=== PATIENT | female | born 1960 | race Hispanic/Latino ===

== ENCOUNTER 2016-11-09 13:02 | Emergency (ER) | payer OTHER ==
[~2016-11-09] VITALS: Ht 162.6 cm; Wt 71.2 kg
--- NOTE | 2016-11-09 14:04 | ED THROAT/DENTAL COMPLAINT ---
History of Present Illness General Chief Complaint: Sore Throat, Dental Pain Stated Complaint: THROAT INFECTION, NOT GETTING BETTER ENT 11/28 Source: patient, old records Exam Limitations: no limitations Vital Signs & Intake/Output Vital Signs & Intake/Output Vital Signs Date Time Temp Pulse Resp B/P Pulse O2 O2 Flow FiO2 Ox Delivery Rate 11/09 1421 98.0 70 20 130/80 98 Room Air 11/09 1310 97.6 73 20 133/84 97 Room Air ED Intake and Output 11/10 0000 11/09 1200 Intake Total Output Total Balance Patient 157 lb Weight Allergies Coded Allergies: Penicillins (RASH 11/09/16) acetaminophen (From PERCOCET) (BREATHING PROBLEMS 11/09/16) oxycodone (From PERCOCET) (BREATHING PROBLEMS 11/09/16) Reconcile Medications Clindamycin HCl 300 MG CAPSULE 1 CAP PO TID sinusitis Triage Note: PT STATES SHE HAD A ROOT CANAL DONE 2 MONTHS AGO AND HAS HAD THROAT PAIN AND SWELLING WITH A STIFF NECK EVER SINCE. SAW PMD FOR PROBLEM AND WAS REFERRED TO ENT BUT UNABLE TO GET APPT UNTIL 11/28. Triage Nurses Notes Reviewed? yes Onset: Abrupt Duration: x 2 months Timing: recent history Injury Environment: home Severity: moderate Severity Numbers: 6 No Modifying Factors: none Associated Symptoms: denies HPI: This is a 56-year-old female with history of hypothyroid presents emergency room complaining of a 2 month history of right-sided upper dental pain after a root canal. The patient finished a course of azithromycin last week however states the pain had persisted. She is scheduled to see ear nose and throat on November 28. She states she went to her primary today and was prescribed tramadol for pain which she took one dose of that made her feel dizzy and nauseous. She denies any fever chills difficulty swallowing difficulty breathing or chest pain. She has been taking naproxen otherwise without improvement. She states that at times her face has appeared swollen. There are no modifying factors or associated symptoms otherwise she is complaining of a pressure sensation over the right side of her face now there is no radiation of pain (DONTE FROST) Past History Travel History Traveled to [place] past 21 day No Medical History Any Pertinent Medical History? see below for history Endocrine: hypothyroidism Surgical History Surgical History: none Psychosocial History What is your primary language Belgian Tobacco Use: Never used ETOH Use: denies use Illicit Drug Use: denies illicit drug use Family History Hx Contributory? No (DONTE FROST) Review of Systems Review of Systems Constitutional: Reports: see HPI. All Other Systems: Reviewed and Negative Comments Review of systems: See HPI, All other systems negative. Constitutional, no chills no fever, no malaise HEENT: No visual changes no sore throat no congestion, no ear pain Cardiovascular: No chest pain , no palpitation Skin, no rashes, no change in skin Respiratory: No dyspnea no cough no sputum GI: No nausea no vomiting, no diarrhea, : No dysuria Muscle skeletal: No joint pain, no back pain, no neck pain, Neurologic: No numbness no headache Psych: No stress Heme/endocrine: No bruising no bleeding Immunology: No lymphadenopathy (DONTE FROST) Physical Exam Physical Exam General Appearance: well developed/nourished, no apparent distress, alert, awake , comfortable Mouth/Throat: normal mouth inspection, pharynx normal Comments: Well-developed well-nourished patient in no apparent distress. Head/Face: Atraumatic, right-sided maxillary sinus tenderness, no facial swelling Eyes: PERRL, EOMI, no conjunctival injection. No nystagmus Ear:External auditory canal and Tympanic membranes clear, no erythema, no FB. Nose: atraumatic.Normal inspection Throat: Moist mucous membranes.Pharynx normal. No pharyngeal erythema/exudate seen. No stridor/drooling or assymetry. No swelling or edema. No trismus no uvula displacement no evidence of gingival abscess, dental tenderness to the right upper side Neck: Supple, lymphadenopathy, FROM Back: FROM, Nontender Cardiovascular: Regular rate and rhythms no murmurs rubs Respiratory:. No respiratory distress. Patient speaking in full complete sentences. Breath sounds clear to auscultation bilaterally: NO W/R/R Extremities: full range of motion Neuro: Alert and oriented x3 Skin: Warm & dry;No appreciable rash on exposed skin Psych: Mood affect normal, normal memory normal judgment. Core Measures ACS in differential dx? No Severe Sepsis Present: No Septic Shock Present: No (DONTE FROST) Progress Differential Diagnosis: epiglottitis, Ludwigs angina, odontogenic abscess, lashanda- tonsillar abscess, strep pharyngitis, tooth fracture, parotitis, sialolithiasis Plan of Care: Patient clinically appears well and nontoxic. Afebrile speaking in full complete sentences no trismus no drooling no evidence of parotitis, sialolithisis- discussed the patient that I do not believe she requires a CAT scan at this time which she is in agreement with pressure for clindamycin was provided advised, Motrin for pain she feels well cleared for discharge (DONTE FROST) Departure Departure Time of Disposition: 1415 Disposition: HOME OR SELF CARE Condition: Stable Clinical Impression Primary Impression: Sinusitis Referrals: ELOY NEWMAN MD (PCP/Family) Additional Instructions: Clindamycin as directed this prescription was sent to your pharmacy. Tylenol or Motrin every 4-6 hours for pain. Follow-up with your ear nose and throat physician as well as her dentist this week return with any concerns Departure Forms: Customer Survey General Discharge Information Prescriptions: Current Visit Scripts Clindamycin HCl 1 CAP PO TID #21 CAP (DONTE FROST) PA/BROOM HANDLE DIPPER Co-Sign Statement Statement: ED Attending supervision documentation- [] I saw and evaluated the patient. I have also reviewed all the pertinent lab results and diagnostic results. I agree with the findings and the plan of care as documented in the PA's/BROOM HANDLE DIPPER's documentation. [X] I have reviewed the ED Record and agree with the PA's/BROOM HANDLE DIPPER's documentation. [] Additions or exceptions (if any) to the PAs/BROOM HANDLE DIPPER's note and plan are summarized below: [] (DIANA HARRISON,ANDRÉS)
[2016-11-09] MEDS ORDERED: CLINDAMYCIN HC300 M1 PO (14:16)
[2016-11-09 14:21] VITALS: BP 130/80
== END 2016-11-09 14:20 ==
LOC: ERH 13:02
DX: J32.9 Chronic sinusitis, unspecified (principal)

== ENCOUNTER 2018-01-17 18:01 | Inpatient (IN) | payer OTHER ==
[~2018-01-17] VITALS: Ht 162.6 cm; Wt 69.9 kg
[~2018-01-17 18:01] MED LIST: CLINDAMYCIN HC300 M1 PO
--- NOTE | 2018-01-17 18:28 | CT SCAN REPORT ---
EXAMINATION: CT HEAD WITHOUT CONTRAST CLINICAL INFORMATION: Right-sided numbness. COMPARISON: None TECHNIQUE: Contiguous axial imaging was performed from the skull base to vertex without intravenous administration of contrast. DLP: 590.6 mGy-cm FINDINGS: There is no evidence of acute intracranial hemorrhage or territorial infarction. No abnormal mass effect or midline shift is seen. Guzmán to white matter differentiation is well preserved. No extra-axial fluid collections are identified. The ventricles are normal in size. There is no abnormal attenuation within the brain parenchyma. The osseous structures and soft tissues are normal. The mastoid air cells and visualized portions of the paranasal sinuses are well aerated. IMPRESSION: No acute intracranial pathology.
[2018-01-17 19:47] LABS: ABSOLUTE BASOPHIL COUNT 0 /CUMM (0.0-0.2); ABSOLUTE EOSINOPHIL COUNT 0.1 /CUMM (0.0-0.7); ABSOLUTE GRANULOCYTE CT 3.1 /CUMM (1.4-6.5); ABSOLUTE LYMPH COUNT 2.1 /CUMM (1.2-3.4); ABSOLUTE MONOCYTE COUNT 0.4 /CUMM (0.10-0.60); BASOPHIL % 0.4 % (0.0-2.0); EOSINOPHIL % 1.8 % (0-5); GRANULOCYTE % 54.8 % (42.2-75.2); HEMATOCRIT 36.5 % (37-47); MEAN CORPUSCULAR HGB 28.7 PG (27.0-31.0); MEAN CORPUSCULAR HGB CONC 33.1 G/DL (33.0-37.0); MEAN CORPUSCULAR VOLUME 86.7 FL (81.0-99.0); MEAN PLATELET VOLUME 8.6 FL (7.4-10.4); PLATELET COUNT 290 /CUMM (130-400); RBC DISTRIBUTION WIDTH 13.1 % (11.5-14.5); RED BLOOD CELL CT 4.21 /CUMM (4.20-5.40); WHITE BLOOD CELL COUNT 5.7 /CUMM (4.8-10.8)
[2018-01-17 19:54] LABS: PT 12.1 SEC (9.4-12.5); PTT 32 SEC (25-37)
--- NOTE | 2018-01-17 19:59 | ED NEURO DEFICIT/STROKE ---
History of Present Illness General Chief Complaint: Neuro Symptoms/ Deficit Stated Complaint: R SIDE NUMBNESS Source: patient Exam Limitations: no limitations Vital Signs & Intake/Output Vital Signs & Intake/Output Vital Signs Date Time Temp Pulse Resp B/P B/P Pulse O2 O2 Flow FiO2 Mean Ox Delivery Rate 01/18 2020 98.3 67 20 134/74 95 Room Air 01/17 2013 Room Air 01/17 1807 98.1 98 18 158/83 98 Room Air Allergies Coded Allergies: Penicillins (RASH 11/09/16) oxycodone (From PERCOCET) (BREATHING PROBLEMS 11/09/16) Reconcile Medications Esomeprazole (Nexium) 40 MG CAPSULE.DR 1 CAP PO DAILY GI (Reported) Fenofibric Acid (Choline) (Fenofibric Acid) 135 MG CAPSULE.DR 1 CAP PO DAILY TRIGLYCERIDES/CHOLESTEROL (Reported) Hydrochlorothiazide 12.5 MG CAPSULE 1 CAP PO DAILY DIURETIC (Reported) Levothyroxine Sodium 75 MCG TABLET 1 TAB PO DAILY THYROID (Reported) Triage Note: PT TO ER C/C SUDDEN ONSET RIGHT SIDED BODY NUMBNESS AND HEADACHE SINCE 1600. PER FAMILY PT HAD MILD SPEECH DIFFICULTY EARLIER, NOW BACK TO NORMAL. STRENGTH EQUAL TO UPPER AND LOEWR EXT. Triage Nurses Notes Reviewed? yes Onset: Abrupt Duration: hour(s):, constant, continues in ED Timing: recent history Altered Sensations: RUE, RLE, right facial Vision Problem? Yes Baseline: alert, oriented x 3 HPI: 57-year-old female comes into the emergency room complaints of intermittent headaches throbbing for the past 3 weeks. She reports that today around 4:00 she surgery experience some numbness to the right side of her body with some visual disturbances feeling blurry. She denies any chest pain or shortness of breath. Denies any weakness. Denies any slurred speech confusion. Denies any other associated symptoms. (Mike Reyes) Past History Travel History Traveled to [place] past 21 day No Medical History Any Pertinent Medical History? see below for history Endocrine: hypothyroidism Surgical History Surgical History: none Psychosocial History What is your primary language Cambodian Tobacco Use: Never used Family History Hx Contributory? No (Mike Reyes) Review of Systems Review of Systems Constitutional: Reports: no symptoms. EENTM: Reports: no symptoms. Respiratory: Reports: no symptoms. Cardiovascular: Reports: no symptoms. GI: Reports: no symptoms. Genitourinary: Reports: no symptoms. Musculoskeletal: Reports: no symptoms. Skin: Reports: no symptoms. Neurological/Psychological: Reports: see HPI. Hematologic/Endocrine: Reports: no symptoms. Immunologic/Allergic: Reports: no symptoms. All Other Systems: Reviewed and Negative (Mike Reyes) Physical Exam Physical Exam General Appearance: well developed/nourished, no apparent distress, alert, awake Head: atraumatic, normal appearance Eyes: Bilateral: normal appearance, PERRL, EOMI. Ears, Nose, Throat: normal ENT inspection, moist mucous membrane, hearing grossly normal Neck: normal inspection, supple, full range of motion Respiratory: normal breath sounds, chest non-tender, no respiratory distress Cardiovascular: regular rate/rhythm Gastrointestinal: soft, non-tender Back: normal inspection Extremities: normal range of motion Psychiatric: awake, alert, oriented x 3 Cranial Nerves: normal hearing, normal speech, PERRL Coordination/Gait: normal gait Motor/Sensory: no motor/sensory deficits, graphesthesia and stereoagnosis intact , negative Babinskis gone, gag reflex intact, sharp and dull sensation intact in all extremities and face Skin: intact, normal color Core Measures CVA/TIA Diagnosis: No Swallow Evaluation Pass Swallow eval date 01/17/18 Swallow eval time 2147 Sepsis Present: No Sepsis Focused Exam Completed? No (Mike Reyes) Progress Differential Diagnosis: acute glaucoma, Culver's Palsy, drug intoxication, electrolyte imbalance, encephalitis, hypoglycemia, intracranial Hem., intracranial mass/tumor, meningitis, migraine KRAMER, seizure disorder, stroke, subarachnoid Hem., vertebrobasilar insuff. Plan of Care: Orders Procedure Date/time Status Regular Diet 01/18 B Active TROPONIN LEVEL 01/18 0800 Active EKG 01/18 0800 Active CBC WITHOUT DIFFERENTIAL 01/18 0600 Active BASIC ELECTROLYTES PLUS BUN&CR 01/18 0600 Active TROPONIN LEVEL 01/18 0200 Active EKG 01/18 0200 Active Lab Add-on Test 01/18 2236 Active SWALLOW EVALUATION 01/17 222 Active PT Evaluate & Treat 01/17 222 Active Pathway - chart 01/17 222 Active House Staff 01/17 222 Active Patient Data 01/17 222 Active Code Status 01/17 2220 Active Intake & Output 01/17 215 Active ED Holding Orders 01/18 2144 Active Admit to inpatient 01/18 2144 Active Vital Signs 01/18 2144 Active Code Status 01/18 2144 Complete Patient Data 01/17 2143 Active Add-on Test (ER Only) 01/18 2032 Active LYME TITRE 01/18 1936 Active LIPID PANEL 01/18 1936 Active GLYCOSYLATED HGB 01/18 1936 Active TROPONIN LEVEL 01/17 1923 Active PARTIAL THROMBOPLASTIN TIME 01/17 1923 Complete PROTHROMBIN TIME 01/17 1923 Complete COMPREHENSIVE METABOLIC PANEL 01/17 1923 Active CBC WITHOUT DIFFERENTIAL 01/17 1923 Complete EKG 01/17 1923 Active SPEECH EVALUATION 01/17 UNK Active Occupational Tx Eval & Treat 01/17 UNK Active VTE Mechanical Prophylaxis 01/17 UNK Active Vital Signs 01/17 UNK Active Telemetry/Fondant Cooker 01/17 UNK Active NIH Stroke Scale 01/17 UNK Active MRI-HEAD W/O TYSON 01/17 UNK Active Current Medications Sig/Crispin Start time Last Medication Dose Stop Time Status Admin Atorvastatin Calcium 80 MG 1700 01/18 1700 UNVr (Lipitor) Aspirin 81 MG DAILY 01/18 1000 UNVr (Aspirin) Enoxaparin Sodium 40 MG DAILY 01/18 1000 UNVr (Lovenox) Fenofibrate 145 MG DAILY 01/18 1000 UNVr (Tricor) Hydrochlorothiazide 12.5 MG DAILY 01/18 1000 UNVr (Hydrodiuril) Levothyroxine Sodium 0.075 MG DAILY 01/18 1000 UNVr (Synthroid) Omeprazole 40 MG DAILY AC 01/18 0700 UNVr (Prilosec) Acetaminophen/ 1 TAB Q4P PRN 01/17 2245 UNVr Butalbital/Caffeine (Fioricet) Potassium Chloride 40 MEQ ONCE ONE 01/17 2245 UNVr (K-Dur) 01/17 2246 Acetaminophen 650 MG Q6P PRN 01/17 2230 AC (Tylenol) Laboratory Tests 01/17/181935: Anion Gap 10, Estimated GFR > 60, BUN/Creatinine Ratio 15.7, Glucose 116 H, Hemoglobin A1c Pending, Calcium 9.4, Total Bilirubin 0.4, AST 39 H, ALT 59 H, Alkaline Phosphatase 71, Troponin I < 0.01, Total Protein 6.9, Albumin 4.2, Globulin 2.7, Albumin/Globulin Ratio 1.6, Triglycerides Pending, Cholesterol Pending, LDL Cholesterol, Calc Pending, HDL Cholesterol Pending, Cholesterol/HDL Ratio Pending, PT 12.1, INR 1.11, APTT 32, CBC w Diff NO MAN DIFF REQ, RBC 4.21, MCV 86.7, MCH 28.7, MCHC 33.1, RDW 13.1, MPV 8.6, Gran % 54.8, Lymphocytes % 36.6, Monocytes % 6.4, Eosinophils % 1.8, Basophils % 0.4, Absolute Granulocytes 3.1, Absolute Lymphocytes 2.1, Absolute Monocytes 0.4, Absolute Eosinophils 0.1, Absolute Basophils 0, Lyme Disease Antibody Pending Diagnostic Imaging: Viewed by Me: CT Scan. Discussed w/RAD: CT Scan. Radiology Impression: PATIENT: AMY DORMAN PRESENT AGE: 57 PATIENT ACCOUNT NO: [id number] : 56 LOCATION: [facility] ORDERING PHYSICIAN: Mike DOMINGUEZ SERVICE DATE: 01/17/18 EXAM TYPE: CAT - CT HEAD ANGIOGRAM EXAMINATION: CT ANGIOGRAM HEAD CLINICAL INFORMATION: Rule out aneurysm. Headaches and blurred vision. Right-sided body numbness. COMPARISON: Head CT from the same evening on 01/17/2018. TECHNIQUE: Test bolus sequences followed by intravenous administration 95 mL of Optiray 320. Helical imaging was performed in the axial plane from the skull base to the vertex. Delayed postcontrast imaging of the head was also performed. The data was processed at the medical technologist hematology's workstation for generation of MIP sequences. Three- dimensional volume rendered reformatted images were also generated at an offline 3-D workstation. DLP: 716.4 mGy-cm. FINDINGS: There is no evidence of acute intracranial hemorrhage or territorial infarction. No abnormal mass effect or midline shift is seen. Guzmán to white matter differentiation is well preserved. No extra-axial fluid collections are identified. There is no abnormal enhancement. The ventricles are normal in size. There is no abnormal attenuation within the brain parenchyma. The osseous structures and soft tissues are normal. The mastoid air cells and visualized portions of the paranasal sinuses are well aerated. The intracranial vasculature corresponding to the anterior and posterior circulation is normal. No significant stenoses or occlusions are seen. No aneurysm or vascular malformation is identified. The visualized extracranial vessels appear normal. The venous sinuses opacify normally. IMPRESSION: No acute process. Normal CT angiogram of the head. DICTATED BY: Prince Roberts MD DATE/ TIME DICTATED:01/17/182121 SHANK ARCHER:KYLE DATE/TIME TRANSCRIBED: 01/17/182121 CONFIDENTIAL, DO NOT COPY WITHOUT APPROPRIATE AUTHORIZATION. < Electronically signed in Other Vendor System> SIGNED BY: Prince Roberts MD 01/17/182130, PATIENT: AMY DORMAN PRESENT AGE: 57 PATIENT ACCOUNT NO: [id number] : 56 LOCATION: [facility] ORDERING PHYSICIAN: Barbara DOMINGUEZ SERVICE DATE: 01/17/18 EXAM TYPE: CAT - CT HEAD WO IV CONTRAST EXAMINATION: CT HEAD WITHOUT CONTRAST CLINICAL INFORMATION: Right-sided numbness. COMPARISON: None TECHNIQUE: Contiguous axial imaging was performed from the skull base to vertex without intravenous administration of contrast. DLP: 590.6 mGy-cm FINDINGS: There is no evidence of acute intracranial hemorrhage or territorial infarction. No abnormal mass effect or midline shift is seen. Guzmán to white matter differentiation is well preserved. No extra-axial fluid collections are identified. The ventricles are normal in size. There is no abnormal attenuation within the brain parenchyma. The osseous structures and soft tissues are normal. The mastoid air cells and visualized portions of the paranasal sinuses are well aerated. IMPRESSION: No acute intracranial pathology. DICTATED BY: Prince Roberts MD DATE/TIME DICTATED:01/17/181823 SHANK ARCHER:KYLE DATE/TIME TRANSCRIBED:1823 CONFIDENTIAL, DO NOT COPY WITHOUT APPROPRIATE AUTHORIZATION. < Electronically signed in Other Vendor System> SIGNED BY: Prince Roberts MD 01/17/181827 Initial ED EKG: normal sinus rhythm, rate (68) (Mike Reyes) Departure Departure Disposition: STILL A PATIENT Condition: Stable Clinical Impression Primary Impression: Acute CVA (cerebrovascular accident) Referrals: Tremaine Pandya MD (PCP/Family) Departure Forms: Customer Survey General Discharge Information Admission Note Spoke With: Rachel Pro MD Documentation of Exam: Documentation of any treatments & extenuating circumstances including Concerns Regarding Discharge (functional status, medication knowledge or non-compliance, living conditions, etc.) that warrant an admission rather than observation: Patient is having some persistent numbness. Normal neurological exam. MRI of brain tomorrow to rule out CVA. Aspirin. Repeat neuro checks. Vital signs rechecks. Neurology consultation. (Mike Reyes) PA/PLANT INSPECTOR Co-Sign Statement Statement: ED Attending supervision documentation- [X] I saw and evaluated the patient. I have also reviewed all the pertinent lab results and diagnostic results. I agree with the findings and the plan of care as documented in the PA's/PLANT INSPECTOR's documentation. [] I have reviewed the ED Record and agree with the PA's/PLANT INSPECTOR's documentation. [] Additions or exceptions (if any) to the PAs/PLANT INSPECTOR's note and plan are summarized below: [] 57-year-old female status post episode of right sided upper and lower extremity weakness and difficulty with speech. On my evaluation her neurological exam is completely normal and she denies any symptoms at this time. (Tyler Prescott DO)
[2018-01-17] MEDS ORDERED: FENOFIBRIC ACI135 M1 PO (21:09)
[2018-01-17] MEDS ORDERED: LEVOTHYROXINE75 MCG PO (21:09)
[2018-01-17] MEDS ORDERED: NEXIUM40 M1 PO (21:09)
[2018-01-17] MEDS ORDERED: HYDROCHLOROTH12.5 M3 PO (21:09)
--- NOTE | 2018-01-17 21:31 | CT SCAN REPORT ---
EXAMINATION: CT ANGIOGRAM HEAD CLINICAL INFORMATION: Rule out aneurysm. Headaches and blurred vision. Right-sided body numbness. COMPARISON: Head CT from the same evening on 01/17/2018. TECHNIQUE: Test bolus sequences followed by intravenous administration 95 mL of Optiray 320. Helical imaging was performed in the axial plane from the skull base to the vertex. Delayed postcontrast imaging of the head was also performed. The data was processed at the technologist infectious disease's workstation for generation of MIP sequences. Three-dimensional volume rendered reformatted images were also generated at an offline 3-D workstation. DLP: 716.4 mGy-cm. FINDINGS: There is no evidence of acute intracranial hemorrhage or territorial infarction. No abnormal mass effect or midline shift is seen. Guzmán to white matter differentiation is well preserved. No extra-axial fluid collections are identified. There is no abnormal enhancement. The ventricles are normal in size. There is no abnormal attenuation within the brain parenchyma. The osseous structures and soft tissues are normal. The mastoid air cells and visualized portions of the paranasal sinuses are well aerated. The intracranial vasculature corresponding to the anterior and posterior circulation is normal. No significant stenoses or occlusions are seen. No aneurysm or vascular malformation is identified. The visualized extracranial vessels appear normal. The venous sinuses opacify normally. IMPRESSION: No acute process. Normal CT angiogram of the head.
--- NOTE | 2018-01-17 22:00 | History & Physical ---
Bowen HARRISON,[facility] 01/17/18 4789: General Information and HPI MD Statement: I have seen and personally examined AMY DORMAN and documented this H&P. The patient is a 57 year old F who presented with a patient stated chief complaint of [right-sided numbness, slurring of speech]. Source of Information: patient Exam Limitations: no limitations History of Present Illness: is a 57-year-old lady with past medical history significant for hypothyroidism, hypertension, hyperlipidemia, migraine headaches and GERD who presents with headache, right-sided numbness, slurring of speech and blurry vision starting 4 p.m. today. Patient states since she has had wondering(at different sites) throbbing headaches, on and off lasting 5 minutes for the past 3 weeks. Also she has been waking up with a nauseous feeling from deep sleep for the past of nights. This afternoon around 4 PM at work she started having headache which was followed by blurry vision(she was able to see with her left but not the right eye), right- sided numbness and slurring of her speech. States that she was trying to talk but couldn't articulate and words wouldn't come out of her mouth. She also reports being confused as while on the phone she couldn't understand what the other person was seen. She called her who brought her to the hospital. She continued to have the symptoms at the time of arrival in the ER(around 6 PM) . Denies any facial droop, chest pain, palpitations, shortness of breath, seizure-like activity, loss of consciousness or recent tick bites. Patient states that she has had a mini stroke 20 years ago as well and presented with slurring of speech but does not recall seeking any medical attention at the time. Family history positive with sister having to TIAs in the past. Allergies/Medications Allergies: Coded Allergies: Penicillins (RASH 11/09/16) oxycodone (From PERCOCET) (BREATHING PROBLEMS 11/09/16) Home Med list Esomeprazole (Nexium) 40 MG CAPSULE.DR 1 CAP PO DAILY GI (Reported) Fenofibric Acid (Choline) (Fenofibric Acid) 135 MG CAPSULE.DR 1 CAP PO DAILY TRIGLYCERIDES/CHOLESTEROL (Reported) Hydrochlorothiazide 12.5 MG CAPSULE 1 CAP PO DAILY DIURETIC (Reported) Levothyroxine Sodium 75 MCG TABLET 1 TAB PO DAILY THYROID (Reported) Past History Travel History Traveled to [place] past 21 day No Medical History Cardiovascular: hypertension, hyperlipidemia Gastrointestinal: GERD Endocrine: hypothyroidism Surgical History Surgical History: cholecystectomy (1992), Breast reduction surgery (22 yrs ago) Past Family/Social History Family History Relations & Conditions if any SISTER Stroke or transient ischemic attack in sister Psychosocial History Where do you live? Home Who Do You Live With? spouse, child Services at Home: None Smoking Status: Former Smoker ETOH Use: denies use Illicit Drug Use: denies illicit drug use Functional Ability ADLs Independent: dressing, eating, toileting, bathing. Ambulation: independent IADLs Independent: shopping, housework, finances, food prep, telephone, transportation , medication admin. Review of Systems Review of Systems Constitutional: Reports: no symptoms. EENTM: Reports: no symptoms. Cardiovascular: Reports: no symptoms. Respiratory: Reports: no symptoms. GI: Reports: no symptoms. Genitourinary: Reports: no symptoms. Musculoskeletal: Reports: no symptoms. Skin: Reports: no symptoms. Neurological/Psychological: Reports: headache, numbness. Hematologic/Endocrine: Reports: no symptoms. Immunologic/Allergic: Reports: no symptoms. All Other Systems: Reviewed and Negative Exam & Diagnostic Data Last 24 Hrs of Vital Signs/I&O Vital Signs Date Time Temp Pulse Resp B/P B/P Pulse O2 O2 Flow FiO2 Mean Ox Delivery Rate 01/18 0209 66 20 101/57 95 Room Air 01/17 2348 97.8 68 18 113/55 97 Room Air 01/18 2020 98.3 67 20 134/74 95 Room Air 01/17 2013 Room Air 01/17 1807 98.1 98 18 158/83 98 Room Air Intake & Output 01/18 0800 01/18 0000 01/17 1600 Intake Total Output Total Balance Patient 154 lb Weight Weight Reported by Patient Measurement Method Physical Exam General Appearance Alert, Oriented X3, Cooperative, No Acute Distress Skin No Rashes, No Breakdown HEENT Atraumatic, PERRLA, EOMI, Mucous Membr. moist/pink Cardiovascular Regular Rate, Normal S1, Normal S2 Lungs Clear to Auscultation, Normal Air Movement Neurological Normal Gait, Normal Speech, Strength at 5/5 X4 Ext, Normal Tone, Sensation Intact, Cranial Nerves 3-12 NL, Reflexes 2+ Extremities No Clubbing, No Cyanosis, No Edema, Normal Pulses Last 24 Hrs of Labs/Peter: Laboratory Tests 01/18/18 0205: Troponin I < 0.01 01/17/18 1936: Anion Gap 10, Estimated GFR > 60, BUN/Creatinine Ratio 15.7, Glucose 116 H, Hemoglobin A1c Pending, Calcium 9.4, Total Bilirubin 0.4, AST 39 H, ALT 59 H, Alkaline Phosphatase 71, Troponin I < 0.01, Total Protein 6.9, Albumin 4.2, Globulin 2.7, Albumin/Globulin Ratio 1.6, Triglycerides 201 H, Cholesterol 129, LDL Cholesterol, Calc 54 L, HDL Cholesterol 35 L, Cholesterol/HDL Ratio 4, PT 12.1, INR 1.11, APTT 32, CBC w Diff NO MAN DIFF REQ, RBC 4.21, MCV 86.7, MCH 28.7, MCHC 33.1, RDW 13.1, MPV 8.6, Gran % 54.8, Lymphocytes % 36.6, Monocytes % 6.4, Eosinophils % 1.8, Basophils % 0.4, Absolute Granulocytes 3.1, Absolute Lymphocytes 2.1, Absolute Monocytes 0.4, Absolute Eosinophils 0.1, Absolute Basophils 0, Lyme Disease Antibody Pending Diagnostic Data EKG Results Normal Sinus Rhythm Other Results CT HEAD WO IV CONTRAST IMPRESSION: No acute intracranial pathology. CT HEAD ANGIOGRAM IMPRESSION: No acute process. Normal CT angiogram of the head. Assessment/Plan Assessment: is a 57-year-old lady with past medical history significant for hypothyroidism, hypertension, hyperlipidemia, migraine headaches and GERD who presents with headache, right-sided numbness, slurring of speech and blurry vision starting 4 p.m. today. Problem list; 1. TIA 2. History of hypothyroidism, hypertension, hyperlipidemia and headaches - We will admit the patient to telemetry floor - Start the patient on aspirin and statin 10 mg daily(patient already on fenofibrate). Repeat CPK in a.m. - Neuro checks every 4 hours. - MRI brain in a.m. - Carotid Doppler ultrasound. - Neurology consult in a.m. - Echocardiogram - Troponins and EKG 3 to rule out ACS. - Obtain A1c and lipid panel. - Patient passed bedside swallow evaluation. - PT evaluation. - Continue on levothyroxine, fenofibrate, and ibuprofen for headaches. Resume hydrochlorothiazide from tomorrow. DVT prophylaxis; subcutaneous Lovenox Patient is full code As Ranked By This Provider Problem List: 1. TIA (transient ischemic attack) Core Measures/Misc (07/23) Acute Coronary Syndrome ACS Diagnosis: No Congestive Heart Failure Congestive Heart Failure Diagnosis No Cerebrovascular Accident CVA/TIA Diagnosis: Yes NIH Stroke Scale: Total 0 Date Last Known Well: 01/18/18 Time Last Known Well: 2300 Symptom Start Date: 01/17/18 Symptom Start Time: 1600 Swallow Evaluation Pass VTE (View Protocol) VTE Risk Factors Age>40 No Mechanical VTE Prophylaxis d/t N/A MechProphylax Ordered No VTE Pharm Prophylaxis d/t NA PharmProphylax ordered Sepsis (View protocol) Sepsis Present: No Leonel Martin 01/17/18 2357: Resident Review Statement Resident Statement: examined this patient, discussed with paralegal internship, agreed with paralegal internship, discussed with family, reviewed EMR data (avail), discussed with nursing , discussed with case mgmt, reviewed images, amended to note Other Findings: This is a 57-year-old female with past medical history significant for GERD, hypertension, hyperlipidemia, hypothyroidism presented to the emergency department for evaluation of headache, blurred vision, right-sided numbness, speech difficulty since 4 PM. Patient was in her usual state of health until 4 PM. Patient reports that she had throbbing headache, 10 out of 10, nonradiating, associated with the nausea. At the same time, she noticed blurry vision associated with right-sided numbness involving the right upper extremity and right lower extremity. She also reported speech difficulty, able to understand and she was able to know what to speak, however difficulty to articulate. She called her and was brought in to the emergency room for further evaluation. She is very alert awake and oriented to time place and person. She denied any right-sided numbness during her examination. She denied any vision abnormality, blurry vision. She has no speech changes. However she reports ongoing 10 out of 10 throbbing headache., Mild relief with ibuprofen. Patient reports remote history of mini stroke 20 years ago, never admitted to hospital, not on baby aspirin, statin. Patient also reports migraine headache for the last 2 years, takes Fioricet on and off for headaches. Follows up with the neurologist. Patient denies any weakness, sensory changes, gait abnormality, vision abnormality. Review of systems positive for headache. Denied any chest pain, short of breath, fever, productive cough, chills, nausea, vomiting, abdominal pain, change in bladder or bowel habits. She denies smoking, alcohol abuse, illicit drug abuse. She follows up with primary care physician. ------ Pertinent vitals afebrile, heart rate 67, respiratory rate 20, blood pressure 1: 30 for outside records saturating at 95 on room air. On exam HEENT within normal limits S1-S2 normal no murmur Bilateral breath sounds normal Abdomen soft, nontender, nondistended Motor exam 5 out of 5--4 extremities, sensations intact, cranial nerves II-12 intact, cerebellar exam within normal limits. Bilateral lower extremity no edema no cyanosis no clubbing Pertinent labs CBC within normal limit Hypokalemia 3.3, BUN 11 and creatinine 0.9 AST ALT 39, [address] head was negative in the emergency room EKG sinus rhythm, rate 70, no acute ST-T wave changes 1. TIA Patient presented with transient episode of blurry vision, right-sided numbness, speech abnormality. Continued to report 10 out of 10 throbbing headache. She had symptoms which lasted for 2 hours. She is hemodynamically stable, labs within normal limits, CTA head and CT head was negative for any infarct. However given her transient symptoms will admit to telemetry for continuous monitoring * Admit to telemetry floor * Continuous telemetry monitoring * Monitor vitals every shift * Maintain oxygen saturation above 90 * NIH stroke scale * Neuro checks every 4 hours * Patient is a 325 mg off aspirin in the emergency room * Continue baby aspirin 81 daily * Started Lipitor 10 mg daily, patient is on fenofibrate 135 mg Will continue fenofibrate * Physical therapy evaluation * Occupation therapy * Speech eval * Swallow eval * Patient passed bedside swallow * We will get MRA brain to look for any infarct * Lipid panel * HbA1c * Echocardiogram to look for valvular abnormalities * Carotid Doppler * Serial troponin, EKG * Neurology consult Headache patient has ongoing headache for the last 2 years. Follows up neurologist. She has migraine headaches for last 2 years on and off. She takes that as needed for headaches. However patient continues to report throbbing headache lasting for a few minutes. * Will control her headache with Tylenol and ibuprofen * Neurology consult * CTA was done which ruled out aneurysms Hyperlipidemia * continue fenofibrate 135 mg daily. * Patient was started on Lipitor 10 mg * please monitor LFTs and creatinine kinase. Hypertension continue hydrochlorothiazide 12.5 mg daily Hypothyroidism continue levothyroxine 175 g daily GERD continue omeprazole Patient is full code DVT prophylaxis subcutaneous Lovenox Regular diet as patient passed bedside swallow evaluation Rachel Pro 01/18/18 0515: Attending MD Review Statement Attending Statement Attending MD Statement: examined this patient, discuss w/resident/PA/CARPENTER ASSEMBLER, agreed w/resident/PA/CARPENTER ASSEMBLER, reviewed EMR data (avail), reviewed images, amended to note Attending Assessment/Plan: CC: Right-sided numbness, blurry vision and slurred speech PMH: HTN, HLD, hypothyroidism, GERD Patient came to ER for sudden onset right-sided body numbness that started 4 PM. He should also noticed speech difficulty and blurry vision at that time. By the time she came to ER at 6 PM her speech and vision were normal but numbness was persistent which later improved in ER. Patient did not notice any muscular weakness, dizziness, palpitations, chest pain, headache, loss of consciousness, seizure. Patient had associated mild nausea. She has headache which is on and off going on since last 3 weeks, each episode lasts 5 minutes and resolves on its own, it is throbbing in nature and happens several times in a day, different site of scalp. Patient gets migraine headaches but this headache is totally different from her migraine headaches. Vitals: Afebrile, pulse in 60s, RR 18, blood pressure 1 5283, saturating well on room air. On exam: A O 3, cooperative, no acute distress, neck supple, JVD normal, no lymphadenopathy, mucosa moist, no dependent edema, no obvious skin rashes or inflammation CVS: S1-S2, RRR. RS: Clear to auscultate bilaterally. Abdomen: Soft , NT, ND, bowel sounds present. Strength 5/by all extremity muscle groups, reflexes normal, tone normal, sensation is intact, cranial nerves intact, peripheral vision intact, no cerebellar signs. CT head: No acute intracranial pathology. CTA head: No acute process. Normal CT angiogram of the head. Assessment and plan 57-year-old female with above-mentioned past medical history has transient neurological weakness of right-sided numbness, blurry vision and slurred speech which improved within 2 hours of onset. Current physical examination unremarkable. Given her comorbidities patient needs further evaluation as this appears to be TIA. + TIA + History of HTN, HLD, hypothyroidism, GERD - Admit to telemetry - Continuous telemetry monitoring - Serial troponin and EKG - MRI brain - 2-D echocardiogram in a.m. - DVT prophylaxis - Obtain lipid profile - Continue aspirin 325 and atorvastatin 10 mg (patient on fenofibrate, mild transaminitis) - Neurologic consult - Serial neuro checks - Carotid Dopplers - Adequate pain control - Restart HCTZ from a.m. - Check LFT and CPK with other labs in a.m.
--- NOTE | 2018-01-18 05:17 | Admission Certification ---
Admission Certification Certification Statement - As attending physician, I certify that at the time of - admission, based on clinical presentation, severity of - symptoms, need for further diagnostic testing and - therapeutic interventions, and risk of adverse outcomes - without in-hospital treatment, in my clinical assessment, - this patient requires an acute hospital stay for a minimum - of two nights or longer. I have also considered psychsocial - factors such as support system, advanced age, financial - issues, cognitive issues, and failed out-patient treatments, - past re-admission history, safety of patient, and lack of - compliance as applicable. Specific rationale supporting this admission is: TIA
--- NOTE | 2018-01-18 07:15 | PN- Housestaff ---
Gauri Syed 01/18/18 0715: Subjective Follow-up For: TIA Subjective: Patient feels well. She did not have any new concerns. No new neurological deficits noted. She remained afebrile overnight. The patient remained stable. Review of Systems Constitutional: Reports: see HPI. Objective Last 24 Hrs of Vital Signs/I&O Vital Signs Date Time Temp Pulse Resp B/P B/P Pulse O2 O2 Flow FiO2 Mean Ox Delivery Rate 01/18 0724 97.5 64 20 100/51 95 Room Air 01/18 0209 66 20 101/57 95 Room Air 01/17 2348 97.8 68 18 113/55 97 Room Air 01/17 2020 98.3 67 20 134/74 95 Room Air 01/17 2013 Room Air 01/17 1807 98.1 98 18 158/83 98 Room Air Intake & Output 01/18 0800 01/18 0000 01/17 1600 Intake Total Output Total Balance Patient 154 lb Weight Weight Reported by Patient Measurement Method Physical Exam General Appearance: No Acute Distress Other Physical Findings: General Exam: AAOx3, No acute distress, Skin: No rashes, no breakdown;HEENT: PERRLA, EOMI;Neck: Supple, No JVD No cervical lymphadenopathy;CVS: Reg Rate, Normal S1,S2, No MGR;Resp: Normal air entry, no ronchi/rales;Abdomen: Soft, No tenderness, Normal Bowel Sounds;Neuro: Normal Speech, Strength 5/5 b/l x 4 extremities, Sensation intact, CN III-XII NL , Reflexes 2+;Extremities: No cyanosis, no pedal edema Assessment/Plan Assessment: Ms Hicks is a 57 -year-old woman with a past medical history of hypothyroidism, hypertension, hyperlipidemia, migraine headaches, GERD came into the hospital with a chief concern of headache, transient right-sided numbness of her body associated with slurring of speech and blurry vision that happened a few hours prior to presentation while she was at work to ER. Symptoms started while she was at work, with headache being the first symptom associated with blurry vision on the right side of the eye with right-sided numbness and slurring of speech. She did had transient episode of aphasia. No reports of loss of consciousness, seizure-like activity, or chest pain, palpitations. He reported similar episodes approximately 20 years ago. At the time of presentation to the ED, vitals-temperature 97.8, pulse rate 68, respiration 18, blood pressure 113/55-pulse ox 97% on room air. Pertinent lab findings-WBC 5.7, hemoglobin 12.1, platelets 290, sodium 140, potassium 3.3, bicarbonate 26, BUN 11, creatinine 0.7, glucose 116, AST 39, ALT 59, alkaline phosphatase 71, cardiac enzymes-troponin I-0.01, 0.01. Lipid panel -triglycerides 201, cholesterol 129, LDL 54, HDL 35. CT head did not reveal any intracranial pathology, and CTA did not reveal any acute process and CT revealed normal angiogram of head. Head MRI revealed a few scattered chronic small vessel ischemic changes within the periventricular white matter. No evidence of acute territorial infarct or hemorrhage. She was given aspirin 325 mg, Fioricet. Etiology in her case is likely transient ischemic attack with symptoms of right- sided numbness, right-sided blurry vision and slurred speech that improved within the first 24 hours. Other etiologies such as seizures, complex migraine could be considered in differential. Problem list: #1 transient ischemic attack #2 rule out stroke #3 hypertension #4 hyperlipidemia #5 hypothyroidism Plan: #1 patient has been admitted to telemetry, which he continued to monitor for any cardiac arrhythmias. #2 she should be started on aspirin daily and at least Lipitor 40 mg if she has any symptoms of CVA considering her slightly elevated liver enzymes. #3 continue neuro checks every 4. #4 await neurological evaluation #5 await MRI and carotid Dopplers #6 restart antihypertensives after discussing with attending. #7 follow-up echocardiac exam results to rule out any valvular pathology #8 follow-up the last cardiac enzyme and EKG, await lab draw by ER staff. #9 monitor electrolytes, for hypokalemia likely secondary to thiazide use. Housekeeping: #1 DVT-prophylaxis: Subcutaneous heparin #2 GI prophylaxis-Protonix #3 CODE STATUS-full code. Problem List: 1. TIA (transient ischemic attack) Pain Ratin Pain Location: headache Pain Goal: Pain 4 or less Pain Plan: tylenol prn Tomorrow's Labs & Rationales: bep since the pt had hypokalemia Jovani Woodson MD 01/18/18 1317: Attending Review Statement Attending Statement Attending MD Statement: examined this patient, discuss w/resident/PA/AUTOMOTIVE INTERNET SALES CONSULTANT, agreed w/resident/PA/AUTOMOTIVE INTERNET SALES CONSULTANT, discussed with family, reviewed EMR data (avail), discussed with nursing, discussed with case mgmt, amended to note Attending Assessment/Plan: Patient seen and examined. Resting comfortably not in any acute distress. Family present at the bedside. Patient reports that she has a history of migraines on and off. She reports that yesterday she developed right frontal headaches of a nature that lasted about 5 minutes. She reports that after this she had blurry vision in the right eye and numbness on the right side of the body. She reports feeling confused when on the phone with a friend and then decided to come to the emergency room for evaluation. On arrival her symptoms had resolved. She is currently remains asymptomatic. She is alert and oriented 3 conversant appropriately. Speech is intact. On examination she has no focal neurologic deficits. She was initially in the emergency room with a head CT, CT angiogram and MRI all of which showed no evidence of an acute stroke or any other acute intracranial process. Her neurologic deficit was only transient and concerning for a TIA. Her symptoms may be related to a complicated migraine headache. Symptoms are currently resolved. Will monitor patient overnight on the telemetry service. If she has no events on cardiac monitoring or repeat episodes of neurologic events she may be discharged home tomorrow. Will await further recommendations from the neurology service.
[2018-01-18] MEDS ORDERED: ASPIRIN81 M4 PO (08:32)
--- NOTE | 2018-01-18 12:13 | MRI REPORT ---
EXAMINATION: MR BRAIN WITHOUT CONTRAST CLINICAL INFORMATION: Evaluate for stroke. Right hand numbness. Headache. Blurry vision. COMPARISON: CT scan of the head 01/17/2018. TECHNIQUE: MRI of the brain without contrast was obtained using routine sequences. FINDINGS: There are a few scattered nonspecific foci of T2 FLAIR signal hyperintensity within the periventricular white matter. No acute territorial infarct. No pathological magnetic susceptibility artifact. Intracranial vascular flow voids are grossly maintained. There is no intracranial mass effect or midline shift. No abnormal extra-axial collection. Lateral and third ventricles are normal. No hydrocephalus. Midline structures including the cervicomedullary junction are normal. Bone marrow signal intensity is normal. There is no mastoid or middle ear effusion. Mild paranasal sinus disease primarily affecting the ethmoid air cells. IMPRESSION: There are a few scattered chronic small vessel ischemic changes within the periventricular white matter. No evidence of acute territorial infarct or hemorrhage.
--- NOTE | 2018-01-18 15:04 | ULTRASOUND REPORT ---
EXAMINATION: DUPLEX BILATERAL CAROTID ULTRASOUND CLINICAL INFORMATION: Stroke. COMPARISON: None. TECHNIQUE: Duplex bilateral carotid US was performed using real-time ultrasound and Doppler techniques (integrating B-mode 2D vascular images, Doppler spectral analysis and color flow Doppler imaging). These techniques were utilized to interrogate the extracranial carotid and vertebral arteries bilaterally. The degree of stenosis is based off criteria similar to NASCET. FINDINGS: No plaque is seen at the carotid bifurcations or within the internal carotid arteries. All velocities are within normal limits. ADDITIONAL FINDINGS: The vertebral arteries show antegrade flow. The external carotid arteries show no significant stenosis. IMPRESSION: No evidence of a hemodynamically significant stenosis involving the internal carotid arteries.
--- NOTE | 2018-01-18 16:20 | Cons- Neurology ---
General Information and HPI Consulting Request Date of Consult: 01/18/18 Requested By: Jovani Woodson MD Reason for Consult: TIA Source of Information: patient, family Exam Limitations: no limitations History of Present Illness: This is a very pleasant 57 year old woman who presented to yesterday after developing an odd episode. She was in the midst of her day, when she developed a bad headache consisting of sharp pain. Within minutes she noted that her speech was off and she could not express herself. She could also not comprehened what other people were telling her. A rivas of numbness and tingling went over the right side of her body. She tried to express herself in writing but could not. She was therefore rushed to the hospital. By the time she arrived her headache had subsided, however, her language difficulties continued. Around 2 hours out of onset all of her symptoms subsided. She notes that she has had migraine without aura that started around menopause. However, they later resolved. Over the last few weeks though she has been having intermittent sharp headaches lasting 5 minutes at a time, occurring about 5-6 times a day. She has also had nausea at night and intermittent flushes of warmth. Further pertinent history is that her sister had a stroke in her 40s and a second one last year. Allergies/Medications Allergies: Coded Allergies: Penicillins (RASH 11/09/16) oxycodone (From PERCOCET) (BREATHING PROBLEMS 11/09/16) Home Med List: Aspirin (Aspirin*) 81 MG TAB.CHEW 81 MG PO DAILY tia Esomeprazole (Nexium) 40 MG CAPSULE. 1 CAP PO DAILY GI (Reported) Fenofibric Acid (Choline) (Fenofibric Acid) 135 MG CAPSULE.DR 1 CAP PO DAILY TRIGLYCERIDES/CHOLESTEROL (Reported) Hydrochlorothiazide 12.5 MG CAPSULE 1 CAP PO DAILY DIURETIC (Reported) Levothyroxine Sodium 75 MCG TABLET 1 TAB PO DAILY THYROID (Reported) Current Medications: Current Medications Sig/Crispin Start time Last Medication Dose Route Stop Time Status Admin Acetaminophen 650 MG Q6P PRN 01/17 2230 AC PO Acetaminophen/ 1 TAB Q4P PRN 01/17 2245 DC Butalbital/Caffeine PO Aspirin 81 MG DAILY 01/18 1000 AC 01/18 PO 1013 Aspirin 0 .STK-MED ONE 01/17 2203 DC PO Aspirin 325 MG ONCE ONE 01/175 DC 01/17 PO 01/17 2146 2158 Atorvastatin Calcium 10 MG 1700 01/18 1700 AC PO Enoxaparin Sodium 40 MG DAILY 01/18 1000 AC 01/18 SC 1013 Fenofibrate 145 MG DAILY 01/18 1000 AC 01/18 PO 1013 Hydrochlorothiazide 12.5 MG DAILY 01/18 1000 AC 01/18 PO 1013 Ibuprofen 400 MG Q6P PRN 01/17 2300 AC PO Levothyroxine Sodium 0.075 MG DAILY AC 01/18 0700 AC 01/18 PO 0823 Omeprazole 40 MG DAILY AC 01/18 0700 AC 01/18 PO 0823 Potassium Chloride 0 .STK-MED ONE 01/17 2341 DC PO Potassium Chloride 40 MEQ ONCE ONE 01/17 2245 DC 01/17 PO 01/17 2246 2338 Review of Systems Review of Systems: As per HPI. Past History Travel History Traveled to [place] past 21 day No Medical History Cardiovascular: hypertension, hyperlipidemia Gastrointestinal: GERD Endocrine: hypothyroidism Surgical History Surgical History: cholecystectomy (1992), Breast reduction surgery (22 yrs ago) Family History Relations & Conditions If Any: SISTER Stroke or transient ischemic attack in sister Psychosocial History Where Do You Live? Home Who Do You Live With? spouse, child Services at Home: None Smoking Status: Former Smoker ETOH Use: denies use Illicit Drug Use: denies illicit drug use Functional Ability ADLs Independent: dressing, eating, toileting, bathing. Ambulation: independent IADLs Independent: shopping, housework, finances, food prep, telephone, transportation , medication admin. Exam & Diagnostic Data Vital Signs and I&O Vital Signs Date Time Temp Pulse Resp B/P B/P Pulse O2 O2 Flow FiO2 Mean Ox Delivery Rate 01/18 1506 98.7 65 18 104/55 94 Room Air 01/18 1255 97.7 69 18 121/74 97 Room Air 01/18 0947 98.5 69 18 108/58 94 Room Air 01/18 0757 98.2 72 18 107/55 97 Room Air 01/18 0724 97.5 64 20 100/51 95 Room Air 01/18 0209 66 20 101/57 95 Room Air 01/17 2348 97.8 68 18 113/55 97 Room Air 01/18 2020 98.3 67 20 134/74 95 Room Air 03/14 2013 Room Air 01/17 1807 98.1 98 18 158/83 98 Room Air Intake & Output 01/18 1600 01/18 0800 01/18 0000 Intake Total Output Total Balance Patient 154 lb Weight Weight Reported by Patient Measurement Method Physical Exam: Alert and oriented x3. Fluent, normal pace of speech, comprehends and can repeat. S1 and S2 are normal. RRR. EOMI, RADHA, no nystagmus, face symmetric, V1-V3 normal, tongue midline, VF intact. Strength is 5/5 throughout. Sensory normal to all modalities. Reflexes are symmetric but upgoing toe on right. FNF normal. Gait stable. Last 48 Hours of Lab Results: Laboratory Tests 01/18 01/18 01/17 0600 0205 1936 Chemistry Sodium (137 - 145 mmol/L) 140 Potassium (3.5 - 5.1 mmol/L) 3.3 L Chloride (98 - 107 mmol/L) 104 Carbon Dioxide (22 - 30 mmol/L) 26 Anion Gap (5 - 16) 10 BUN (7 - 17 mg/dL) 11 Creatinine (0.5 - 1.0 mg/dL) 0.7 Estimated GFR (>60 ml/min) > 60 BUN/Creatinine Ratio (7 - 25 %) 15.7 Glucose (65 - 99 mg/dL) 116 H Hemoglobin A1c (4.2 - 5.8 %) 5.8 Calcium (8.4 - 10.2 mg/dL) 9.4 Total Bilirubin (0.2 - 1.3 mg/dL) 0.4 AST (14 - 36 U/L) 39 H ALT (9 - 52 U/L) 59 H Alkaline Phosphatase (<127 U/L) 71 Troponin I (< 0.11 ng/ml) < 0.01 < 0.01 Total Protein (6.3 - 8.2 g/dL) 6.9 Albumin (3.5 - 5.0 g/dL) 4.2 Globulin (1.9 - 4.2 gm/dL) 2.7 Albumin/Globulin Ratio (1.1 - 2.2 %) 1.6 Triglycerides (<150 mg/dL) 201 H Cholesterol (<200 MG/DL) 129 LDL Cholesterol, Calc (65 - 129 mg/dL) 54 L HDL Cholesterol (40 - 60 mg/dL) 35 L Cholesterol/HDL Ratio (0.00 - 4.23 %) 4 Coagulation PT (9.4 - 12.5 SEC) 12.1 INR (0.90 - 1.19) 1.11 APTT (25 - 37 SEC) 32 Hematology CBC w Diff Cancelled NO MAN DIFF REQ WBC (4.8 - 10.8 /CUMM) Cancelled 5.7 RBC (4.20 - 5.40 /CUMM) Cancelled 4.21 Hgb (12.0 - 16.0 G/DL) Cancelled 12.1 Hct (37 - 47 %) Cancelled 36.5 L MCV (81.0 - 99.0 FL) Cancelled 86.7 MCH (27.0 - 31.0 PG) Cancelled 28.7 MCHC (33.0 - 37.0 G/DL) Cancelled 33.1 RDW (11.5 - 14.5 %) Cancelled 13.1 Plt Count (130 - 400 /CUMM) Cancelled 290 MPV (7.4 - 10.4 FL) Cancelled 8.6 Gran % (42.2 - 75.2 %) 54.8 Lymphocytes % (20.5 - 51.1 %) 36.6 Monocytes % (1.7 - 9.3 %) 6.4 Eosinophils % (0 - 5 %) 1.8 Basophils % (0.0 - 2.0 %) 0.4 Absolute Granulocytes (1.4 - 6.5 /CUMM) 3.1 Absolute Lymphocytes (1.2 - 3.4 /CUMM) 2.1 Absolute Monocytes (0.10 - 0.60 /CUMM) 0.4 Absolute Eosinophils (0.0 - 0.7 /CUMM) 0.1 Absolute Basophils (0.0 - 0.2 /CUMM) 0 Serology Lyme Disease Antibody Pending Imaging/Other Studies: MRI brain - IMPRESSION: There are a few scattered chronic small vessel ischemic changes within the periventricular white matter. No evidence of acute territorial infarct or hemorrhage. IMPRESSION: No evidence of a hemodynamically significant stenosis involving the internal carotid arteries. FINDINGS: There is no evidence of acute intracranial hemorrhage or territorial infarction. No abnormal mass effect or midline shift is seen. Guzmán to white matter differentiation is well preserved. No extra-axial fluid collections are identified. There is no abnormal enhancement. The ventricles are normal in size. There is no abnormal attenuation within the brain parenchyma. The osseous structures and soft tissues are normal. The mastoid air cells and visualized portions of the paranasal sinuses are well aerated. The intracranial vasculature corresponding to the anterior and posterior circulation is normal. No significant stenoses or occlusions are seen. No aneurysm or vascular malformation is identified. The visualized extracranial vessels appear normal. The venous sinuses opacify normally. IMPRESSION: No acute process. Normal CT angiogram of the head. Assessment/Plan Assessment: 57 year old with a presentation suggestive of a TIA of the left hemisphere. Fortunately, no infarction. I do not feel that this is a complicated migraine, and I have concern that she may have atypical risk factors as her sister had a stroke at a young age. Recommendations: 1. Echo with bubble study 2. Telemetry 3. Start aspirin 81mg and Atorvastatin 40mg. 4. Send out anti-phospholipid antibodes, aNCA-P +C and ESR. Check TSH and B12. YC Consult Acknowledgment - Thank you for your consult request.
--- NOTE | 2018-01-18 16:22 | Discharge Summary ---
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 Symptoms lasted for approximately 2 hrs. She reported similar episodes approximately 20 years ago. She was admitted to telemetry for the managment of TIA. Other differential considered were complex migraine. At the time of presentation to the ED, vitals-temperature 97.8, pulse rate 68, respiration 18, blood pressure 113/55-pulse ox 97% on room air. Pertinent lab findings-WBC 5.7, hemoglobin 12.1, platelets 290, sodium 140, potassium 3.3, bicarbonate 26, BUN 11, creatinine 0.7, glucose 116, AST 39, ALT 59, alkaline phosphatase 71, cardiac enzymes-troponin I-0.01, 0.01. Lipid panel -triglycerides 201, cholesterol 129, LDL 54, HDL 35. CT head did not reveal any intracranial pathology, and CTA did not reveal any acute process and CT revealed normal angiogram of head. Head MRI revealed a few scattered chronic small vessel ischemic changes within the periventricular white matter. No evidence of acute territorial infarct or hemorrhage. Carotid doppler did not reveal any evidence of hemodynamically significant stenosis involving the internal carotid arteries. Echcardiogram 01/18/18- Normal left ventricular systolic function with borderline hypertrophy. Mild aortic Regurgitation. No significant Pulmonary hypertension. Problem list: #1 transient ischemic attack #2 rule out stroke #3 hypertension #4 hyperlipidemia #5 hypothyroidism #6 Abnormal liver enzymes, NAFLD She was monitored on telemety to rule out any arrythmias and freqent neurochecks , with no reported tele events. NIHSS remained 0. She was started on daily aspirin, and low intensity statin, in addition to fenofibrate. She was started on lipitor 40 mg daily, but considering her slighly elevated liver chemistries, hepartic panel should be checked within 4 wks. Vitals remained stable. Cardiac enzymes remained within normal limits, and serial EKGs did not reveal any AV blocks, rhythm changes or ST TWI. She was evaluated by the neurologist who recommended continued on daily aspirin and statin. As per the neurologist, she should also have work up done for ruling out other causes w/ anti-phospholipid antibodes, aNCA-P +C and ESR, which could be done as an outpatient. She was discharged home with recommendation to follow up with her primary care provider, and neurologist. If she were to have any symptoms such as seizure, weakness, numbness of upper or lower extremities, vision changes she is advised to seek medical attention immediately. Allergies: Coded Allergies: Penicillins (RASH 11/09/16) oxycodone (From PERCOCET) (BREATHING PROBLEMS 11/09/16) Pertinent Lab Results: CT Head : :01/17/181823 There is no evidence of acute intracranial hemorrhage or territorial infarction. No abnormal mass effect or midline shift is seen. Guzmán to white matter differentiation is well preserved. No extra-axial fluid collections are identified. The ventricles are normal in size. There is no abnormal attenuation within the brain parenchyma. The osseous structures and soft tissues are normal. The mastoid air cells and visualized portions of the paranasal sinuses are well aerated. CTA Head : 01/17/18 The intracranial vasculature corresponding to the anterior and posterior circulation is normal. No significant stenoses or occlusions are seen. No aneurysm or vascular malformation is identified. The visualized extracranial vessels appear normal. The venous sinuses opacify normally. IMPRESSION: No acute process. Normal CT angiogram of the head. ---- US - [id number] DOPPLER 01/18/18 The vertebral arteries show antegrade flow. The external carotid arteries show no significant stenosis. IMPRESSION: No evidence of a hemodynamically significant stenosis involving the internal carotid arteries. -- MRI - MRI-HEAD W/O TYSON 01/18/18- There are a few scattered nonspecific foci of T2 FLAIR signal hyperintensity within the periventricular white matter. No acute territorial infarct. No pathological magnetic susceptibility artifact. Intracranial vascular flow voids are grossly maintained. There is no intracranial mass effect or midline shift. No abnormal extra-axial collection. Lateral and third ventricles are normal. No hydrocephalus. Midline structures including the cervicomedullary junction are normal. Bone marrow signal intensity is normal. There is no mastoid or middle ear effusion. Mild paranasal sinus disease primarily affecting the ethmoid air cells. ---- ECHOCARDIOGRAM 01/18/18 Normal left ventricular systolic function with borderline hypertrophy. Mild aortic Regurgitation. No significant Pulmonary hypertension. Disposition Summary Disposition Principal Diagnosis: TIA Additional Diagnosis: Complex migraine Discharge Disposition: home or self care Discharge Instructions General Discharge Information Code Status: Full Code Patient's Diet: heart healthy diet Patient's Activity: as tolerated Follow-Up Instructions/Appts: -Please see your primary care provider within a week of discharge -Please follow up with your neurologist within a week of discharge. -Please take your medications as prescribed. Medications at Discharge Discharge Medications: Continue taking these medications: Esomeprazole (Nexium) 40 MG CAPSULE. 1 Capsule ORAL DAILY Qty = 90 Comments: GIVEN PRILOSEC 01/19/18 7:50AM Levothyroxine Sodium (Levothyroxine Sodium) 75 MCG TABLET 1 Tablet ORAL DAILY Qty = 90 Comments: Last Taken: 01/19/18 Time: 9:45AM Hydrochlorothiazide (Hydrochlorothiazide) 12.5 MG CAPSULE 1 Capsule ORAL DAILY Qty = 90 Comments: Last Taken: 01/19/18 Time: 9:45AM Fenofibric Acid (Choline) (Fenofibric Acid) 135 MG CAPSULE.DR 1 Capsule ORAL DAILY Qty = 90 Comments: Last Taken: 01/19/18 Time: 9:45 AM Start taking the following new medications: Aspirin (Aspirin*) 81 MG TAB.CHEW 81 Milligram ORAL DAILY Qty = 90 No Refills Instructions: . Comments: Last Taken: 01/19/18 Time: 9:45AM Atorvastatin Calcium (Lipitor) 40 MG TABLET 1 Tablet ORAL DAILY Qty = 90 No Refills Instructions: . Comments: NOT GIVEN Copies To: Tremaine Pandya MD Attending MD Review Statement Documenting Attending: Jovani Woodson MD Other Findings: Discharged in stable condition.
--- NOTE | 2018-01-18 16:24 | Patient Discharge Instructions ---
Discharge Instructions General Discharge Information You were seen/treated for: Transient ischemic attack Watch for these problems: chest pain, shortness of breath, palpitations Seizures, weakness of upper or lower extremities, slurring of speech, numbness of upper or lower extremities. Loss of consciousnessness, loss of bladder control. Special Instructions: -Please see your primary care provider within a week of discharge -Please follow up with your neurologist within a week of discharge. -Please take your medications as prescribed. -Please discuss with your PCP about checking your liver chemistries within 2-3 wks. Acute Coronary Syndrome Inclusion Criteria At DC or during hospital stay patient has or had the following: ACS DIAGNOSIS No Discharge Core Measures Meds if any: Prescribed or Continued at Discharge Meds if any: NOT Prescribed or Continued at Discharge Congestive Heart Failure Inclusion Criteria At DC or during hospital stay patient has or had the following: CHF DIAGNOSIS No Discharge Core Measures Meds if any: Prescribed or Continued at Discharge Meds if any: NOT Prescribed or Continued at Discharge Cerebrovascular accident Inclusion Criteria At DC or during hospital stay patient has or had the following: CVA/TIA Diagnosis Yes Discharge Core Measures Meds if any: Prescribed or Continued at Discharge Antithrombotic Yes Statin (required if LDL =>70) Yes Anticoagulant No Meds if any: NOT Prescribed or Continued at Discharge Venous thromboembolism Inclusion Criteria VTE Diagnosis No VTE Type NONE VTE Confirmed by (Test) NONE Discharge Core Measures - Per Current guidelines, there needs to be overlap - treatment for the first 5 days of Warfarin therapy. - If discharged on Warfarin prior to 5 days of - overlap therapy, the patient will need to be - assessed for post discharge needs including - *Post discharge parental anticoagulation - *Warfarin and/or parental anticoagulation education - *Follow up date to check INR post discharge At least 5 days overlap therapy as Inpatient No Meds if any: Prescribed or Continued at Discharge Note: Overlap Therapy is Warfarin and Anticoagulant Meds if any: NOT Prescribed or Continued at Discharge
[2018-01-18 17:37] VITALS: BP 104/55
--- NOTE | 2018-01-18 20:43 | ECHOCARDIOGRAM REPORT ---
AMY DORMAN Age: 57 : 1960 Gender: F Exam Date: 01/18/2018 16:12 Exam Location: ER Ht (in): 64 Wt (lb): 154 BSA: 1.79 BP: 100 / 57 Ordering Physician: Hector Martin MD Referring Physician: Hector Martin MD Technologist: Mary Chapman RDCS Room Number: ER#8 Indications: STROKE Rhythm: Sinus Technical Quality: fair FINDINGS Left Ventricle Normal size left ventricle. Left ventricular wall thickness at upper limits of normal. Normal left ventricular ejection fraction estimated at 60-65%. Right Ventricle Normal right ventricular size and function. Right Atrium Normal right atrial size. Left Atrium Normal left atrial size. Mitral Valve Mitral valve not well visualized, grossly normal. Mild mitral regurgitation. Aortic Valve Diffuse thickening (sclerosis) of the aortic valve cusps without reduced excursion. Mild aortic regurgitation. Tricuspid Valve Tricuspid valve is normal in structure and function. Mild tricuspid regurgitation. Right ventricular systolic pressure estimated to be within the normal range at 20 mmHg. Pulmonic Valve Pulmonic valve not well visualized, grossly normal. Pericardium No pericardial effusion. Great Vessels Normal size aortic root. CONCLUSIONS Normal left ventricular systolic function with borderline hypertrophy. Mild aortic Regurgitation. No significant Pulmonary hypertension. Abundio Gee M.D. (Electronically Signed) Final Date: 18 January 2018 20:43 MEASUREMENTS (Male / Female) Normal Values 2D ECHO LV Diastolic Diameter PLAX 4.2 cm 4.2 - 5.9 / 3.9 - 5.3 cm LV Systolic Diameter PLAX 2.6 cm 2.1 - 4.0 cm LV Fractional Shortening PLAX 38.1 % 25 - 46 % LV Ejection Fraction 2D Teich 68.7 % IVS Diastolic Thickness 1.1 cm LVPW Diastolic Thickness 1.1 cm LV Relative Wall Thickness 0.5 RV Internal Dim ED PLAX 3.0 cm 1.9 - 3.8 cm LVOT Diameter 1.9 cm Aortic Root Diameter 2.8 cm LA Systolic Diameter LX 3.2 cm 3.0 - 4.0 / 2.7 - 3.8 cm LA Volume 21.0 cm 18 - 58 / 22 - 52 cm Ascending Aorta Diameter 2.8 cm DOPPLER AV Peak Velocity 138.0 cm/s AV Peak Gradient 7.6 mmHg AV Mean Velocity 99.2 cm/s AV Mean Gradient 4.0 mmHg AV Velocity Time Integral 30.2 cm LVOT Peak Velocity 115.0 cm/s LVOT Peak Gradient 5.3 mmHg LVOT Mean Velocity 78.6 cm/s LVOT Mean Gradient 3.0 mmHg LVOT Velocity Time Integral 26.2 cm LVOT Stroke Volume 74.3 cm AV Area Cont Eq vti 2.5 cm AV Area Cont Eq pk 2.4 cm MV Peak Velocity 79.0 cm/s MV Peak Gradient 2.5 mmHg MV Mean Velocity 45.1 cm/s MV Mean Gradient 1.0 mmHg Mitral E Point Velocity 66.1 cm/s Mitral A Point Velocity 62.7 cm/s Mitral E to A Ratio 1.1 MV PHT Velocity 77.6 cm/s MV Deceleration [place] 539.0 cm/s MV Pressure Half Time 43.2 ms MV Area PHT 5.1 cm MV Deceleration Time 195.0 ms TR Peak Velocity 133.0 cm/s TR Peak Gradient 7.1 mmHg Right Atrial Pressure 5.0 mmHg Pulmonary Artery Systolic Pressu 12.1 mmHg Right Ventricular Systolic Press 12.1 mmHg PV Peak Velocity 99.3 cm/s PV Peak Gradient 3.9 mmHg PV Mean Velocity 68.4 cm/s PV Mean Gradient 2.0 mmHg PV Velocity Time Integral 24.1 cm LV E' Lateral Velocity 9.8 cm/s Mitral E to LV E' Lateral Ratio 6.7 LV E' Septal Velocity 6.9 cm/s Mitral E to LV E' Septal Ratio 9.6
[2018-01-19] MEDS ORDERED: LIPITOR40 M1 PO ×2 (05:45→10:26)
--- NOTE | 2018-01-19 07:24 | PN- Housestaff ---
Gauri Syed 01/19/18 0714: Subjective Follow-up For: TIA Subjective: She feels well. No new neurological symptoms. No overnight tele events. No CP/ palpitations. Complains of occassional headaches, which is relieved upon taking ibuprufen. She was having her breakfast this am. Did not have any trouble swallowing both solids or liquids. She walked around without any support, and she doesnt have any ataxia, weakness in lower extremities ( as per pt ). Review of Systems Constitutional: Reports: see HPI. Objective Last 24 Hrs of Vital Signs/I&O Vital Signs Date Time Temp Pulse Resp B/P B/P Pulse O2 O2 Flow FiO2 Mean Ox Delivery Rate 01/18 1737 98.7 65 18 104/55 94 Room Air Room Air 01/18 1506 98.7 65 18 104/55 94 Room Air 01/18 1255 97.7 69 18 121/74 97 Room Air 01/18 0947 98.5 69 18 108/58 94 Room Air 01/18 0757 98.2 72 18 107/55 97 Room Air 01/18 0724 97.5 64 20 100/51 95 Room Air Intake & Output 01/19 0800 01/19 0000 01/18 1600 Intake Total 240 Output Total Balance 240 Intake, Oral 240 Physical Exam General Appearance: No Acute Distress Other Physical Findings: General Exam: AAOx3, No acute distress, Skin: No rashes, no breakdown;HEENT: PERRLA, EOMI;Neck: Supple, No JVD No cervical lymphadenopathy;CVS: Reg Rate, Normal S1,S2, No MGR;Resp: Normal air entry, no ronchi/rales;Abdomen: Soft, No tenderness, Normal Bowel Sounds;Neuro: Normal Speech, Strength 5/5 b/l x 4 extremities, Sensation intact, CN III-XII NL, Reflexes 2+;Extremities: No cyanosis, no pedal edema Assessment/Plan Assessment: Ms Hicks is a 57 -year-old woman with a past medical history of hypothyroidism, hypertension, hyperlipidemia, migraine headaches, GERD came into the hospital with a chief concern of headache, transient right-sided numbness of her body associated with slurring of speech and blurry vision that happened a few hours prior to presentation while she was at work to ER likely secondary to TIA. Other differential, such as complex migraine could be considered in her case given her previous history of migraine. Lab and radiological findings in the last 24 hours: Sodium 143, potassium 3.9, bicarbonate 27, renal function-BUN 10, serum creatinine 0.8, total bilirubin 0.4, AST 39-->49, AST 59--> 70. TSH 1.050, vitamin B12 453, triglycerides 201, LDL 54, HDL 35. Head MRI revealed a few scattered chronic small vessel ischemic changes within the periventricular white matter. No evidence of acute territorial infarct or hemorrhage. Carotid Doppler studies revealed no evidence of a hemodynamically significant stenosis involving the internal carotid arteries. Echocardiogram 01/17/2018- Normal left ventricular systolic function with borderline hypertrophy. Mild aortic Regurgitation. No significant Pulmonary hypertension. She was given aspirin 325 mg, Fioricet. Problem list: #1 transient ischemic attack #2 rule out stroke #3 hypertension #4 hyperlipidemia #5 hypothyroidism #6 elevated liver enzymes, likely NAFLD Etiology in her case is likely transient ischemic attack with symptoms of right- sided numbness, right-sided blurry vision and slurred speech that improved within the first 24 hours. Other etiologies such as seizures, complex migraine could be considered in differential. Plan: #1 patient has been admitted to telemetry with no overnight arrhythmias. NIH stroke scale equal to 0 in the last 24 hours. #2 she should be started on aspirin daily and at least Lipitor 40 mg if she has any symptoms of TIA considering her slightly elevated liver enzymes. She should have a follow up of her liver enzymes atleast 4 wks to avoid any hepatopathy. #3 continue neuro checks every 4h #6 continue antihypertensives. Would recommend starting lisinopril given the benefit in the case of TIA/CVA. Defer the decision to the primary care physician at this time. #9 monitor electrolytes, for hypokalemia likely secondary to thiazide use. #10 Check anti-phospholipid antibodes, aNCA-P +C and ESR as an outpatient ( as recommdended by the neurologist ). Housekeeping: #1 DVT-prophylaxis: Subcutaneous Lovenox. #2 GI prophylaxis-Protonix #3 CODE STATUS-full code. Problem List: 1. TIA (transient ischemic attack) Pain Ratin Pain Location: headache Pain Goal: Pain 4 or less Pain Plan: tylenol prn Tomorrow's Labs & Rationales: no labs necessary Jovani Woodson MD 01/19/18 1121: Attending MD Review Statement Attending Statement Attending MD Statement: examined this patient, discuss w/resident/PA/CASE OPERATOR, agreed w/resident/PA/CASE OPERATOR, discussed with family, reviewed EMR data (avail), discussed with nursing, discussed with case mgmt, amended to note Attending Assessment/Plan: Patient seen and examined. Resting comfortably not in any acute distress. No issues overnight. No new complaints this morning. Neurology consultation appreciated. MRI of the brain was ordered but shows no evidence of an acute stroke. This morning she complained only of mild headache that improved with Tylenol. Denies any blurry vision. Denies any sport speech. She is ambulating freely with no need for assistance. She has no neurologic deficit on exam. She is medically stable to be discharged home today. Per neurology evaluation this is likely a transient ischemic attack. We will be optimizing her therapy by discharging her home on antiplatelet therapy with aspirin. Her LDL is within goal however her triglyceride level remains elevated despite fenofibrate therapy. We will be discharging her home on statin therapy as well. She has been advised to return to the emergency room should she develop any neurologic deficits. This has been explained to the as well.
[2018-01-19 08:00] VITALS: BP 106/62
[2018-01-19] MEDS ORDERED: ASPIRIN81 M4 PO (10:26)
[2018-01-19 10:47] VITALS: BP 105/64
== END 2018-01-19 10:58 | DRG 69 ==
LOC: ERH 18:01 → ERHI 21:44
PROVIDERS: Physician Assistant Medical
DX: G45.9 Transient cerebral ischemic attack, unspecified (principal); E03.9 Hypothyroidism, unspecified; E78.5 Hyperlipidemia, unspecified; K21.9 Gastro-esophageal reflux disease without esophagitis; Z88.5 Allergy status to narcotic agent; Z88.0 Allergy status to penicillin; Z90.49 Acquired absence of other specified parts of digestive tract; Z87.891 Personal history of nicotine dependence; Z82.3 Family history of stroke; R79.89 Other specified abnormal findings of blood chemistry; G43.109 Migraine with aura, not intractable, without status migrainosus
CPT/HCPCS: 70551; 86618; ERO; 82436; 93005; 93010; 93306; J1650; J3490